=== PATIENT | female | born 1985 | race Hispanic/Latino ===

== ENCOUNTER 2022-03-15 18:39 | Emergency (ER) | payer SELFPAY ==
[~2022-03-15] VITALS: Ht 152.4 cm; Wt 49.9 kg
[2022-03-15] MEDS ORDERED: KETOROLAC TROMETHAMINE 10 MG TAB PO ONE (19:15)
[2022-03-15] MEDS ORDERED: PREDNISONE 20 MG TAB PO SCH (19:20)
[2022-03-15] MEDS ORDERED: PREDNISONE50 MG PO (19:53)
== END 2022-03-15 20:57 | disposition home or self-care (01) ==
LOC: ER 18:55
DX: R20.2 Paresthesia of skin (principal); F41.9 Anxiety disorder, unspecified
CPT/HCPCS: 72125; 73120; 99283; J7512

== ENCOUNTER 2024-08-17 11:23 | Emergency (ER) | payer BC, MEDICAID ==
[~2024-08-17] VITALS: Ht 157.5 cm; Wt 56.7 kg
[~2024-08-17 11:23] MED LIST: PREDNISONE50 MG PO
[2024-08-17 11:24] VITALS: TEMP 98.7
[2024-08-17 11:54] LABS: BASOPHILS % 0.4 % (0.0-1.0); EOSINOPHILS # (AUTO) 0.3 (0.0-0.4); EOSINOPHILS % 2.8 % (0.0-6.0); HEMATOCRIT 38.6 % (34.2-44.1); HEMOGLOBIN 12.9 g/dL (12.0-16.0); LYMPHOCYTES # (AUTO) 1.6 (1.0-3.2); LYMPHOCYTES % 16.6 % (18.0-39.1); MEAN CORPUSCULAR HGB CONC 33.4 g/dL (31-35); MEAN CORPUSCULAR VOLUME 89.8 fL (81-99); MONOCYTES # (AUTO) 0.6 (0.2-0.8); MONOCYTES % 6.4 % (4.4-11.3); NEUTROPHILS # (AUTO) 6.9 (2.1-6.9); NEUTROPHILS % 73.6 % (38.7-80.0); PLATELET COUNT 330 x10e3/uL (140-360); RED CELL DISTRIBUTION WIDTH 13.1 % (11.7-14.4)
[2024-08-17 11:58] LABS: INR 0.96; PROTHROMBIN TIME 13.4 seconds (11.9-14.5)
[2024-08-17 11:59] LABS: PARTIAL THROMBOPLASTIN TIME 28.9 seconds (23.8-35.5)
[2024-08-17 12:00] VITALS: PULSE 78; RESP 13
[2024-08-17 12:08] LABS: ALBUMIN 3.9 g/dL (3.5-5.0); ANION GAP 18.3 mmol/L (8-16); BILIRUBIN,TOTAL 0.4 mg/dL (0.2-1.2); CALCIUM 9.3 mg/dL (8.4-10.2); CREATININE, SERUM 0.86 mg/dL (0.57-1.11); MAGNESIUM 1.7 MG/DL (1.3-2.1)
[2024-08-17 12:19] LABS: POTASSIUM 3.3 mmol/L (3.5-5.1)
[2024-08-17 12:29] LABS: THYROID STIMULATING HORMONE 0.311 uIU/mL (0.350-4.940)
[2024-08-17] MEDS: SODIUM CHLORIDE 0.9% 1000ML 1,000 ML IV STA (12:31)
[2024-08-17] MEDS: ONDANSETRON HCL INJ 2MG/ML 2ML 2 MG/ML VIAL IV STA (12:33)
[2024-08-17 14:30] VITALS: BP 118/71
[2024-08-17 14:38] VITALS: PULSE 91; RESP 22; O2SAT 100
[2024-08-17 14:53] VITALS: TEMP 98.7
[2024-08-17] MEDS ORDERED: SODIUM CHLORIDE 0.9% 100 ML ONE (14:53)
[2024-08-17] MEDS ORDERED: IOPAMIDOL 370 MG/ML 100 ML INFUS..BTL INJ ONE (14:53)
== END 2024-08-17 14:54 | disposition home or self-care (01) ==
LOC: ER 11:47
DX: R00.2 Palpitations (principal)
CPT/HCPCS: 36415; 71045; 71260; 80053; 83735; 84443; 84702; 85025; 85379; 85610; 85730; 93005; 99284; J7030; J7050; Q9967; J2405; J2470